=== PATIENT | female | born 1950 | race Caucasian/White ===

== ENCOUNTER → 2023-08-30 | Outpatient (CLI) | payer MEDICARE, OTHER, SELFPAY ==
--- NOTE | 2023-08-30 | DI.RAD.S_ITS ---
Bone Density Report Name: HELEN JAMES Age: 72 Sex: Female Ethnicity: White Date of : 1950 Indication: postmenopausal; screening for osteoporosis; Referring Provider: MEHREEN PEARSON Study: Bone densitometry was performed. Exam Date: August 30, 2023 Accession number: [id number] Bone Density: Region BMD T-score Z-score Classification AP Spine(L1-L4) 0.914 -1.2 1.2 Osteopenia Femoral Neck (Left) 0.599 -2.3 -0.2 Osteopenia Total Hip (Left) 0.781 -1.3 0.5 Osteopenia Femoral Neck (Right) 0.626 -2.0 0.1 Osteopenia Total Hip (Right) 0.845 -0.8 1.0 Normal Total Hip Mean 0.813 -1.1 0.8 Osteopenia World Health Organization criteria for BMD impression classify patients as: Normal (T-score at or above -1.0), Osteopenia (T-score between -1.0 and -2.5), or Osteoporosis (T-score at or below -2.5). 10-year Fracture Risk(1): Major Osteoporotic Fracture 15% Hip Fracture 4.2% Reported Risk Factors: [place] (), Neck BMD=0.599, BMI=24.9 (1) FRAX(R) Version 3.08. Fracture probability calculated for an untreated patient. Fracture probability may be lower if the patient has received treatment. Impression: The patient has low bone mass, based on the Left Femoral Neck T-score. The patient has an estimated ten-year risk of hip fracture of 4.2% and an estimated ten-year risk of major fracture of 15%, based on the WHO FRAX algorithm. Discussion: BONE DENSITY IS LOW AT ONE OR MORE SKELETAL SITES. THE PATIENT'S BMD AND CLINICAL RISK FACTORS CONTRIBUTE TO THIS PATIENT'S INCREASED RISK OF FRACTURE. This patient's lowest T-score is low at one or more skeletal sites. It meets the World Health Organization's (WHO) criteria for low bone mass (T-score between -1.0 and -2.5). The patient's 10-year risk of hip fracture as calculated by FRAX exceeds the threshold where pharmacological therapy is recommended by the National Osteoporosis Foundation (NOF). However, all treatment decisions require clinical judgment and consideration of individual patient factors, including patient preferences, comorbidities, previous drug use, risk factors not captured in the FRAX model (e.g., frailty, falls, vitamin D deficiency, increased bone turnover, interval significant decline in bone density) and possible under or overestimation of fracture risk by FRAX. The patient should follow a healthful lifestyle (good nutrition with adequate calcium and vitamin D, and appropriate weight-bearing exercise). Follow-Up: Consider a repeat BMD and Vertebral Fracture Assessment (VFA) exam in 2 years or sooner if medically necessary, to reassess this patient's status. Reported by: SIMEON RECINOS MD on 08/30/2023 10:46:00 AM.
== END ==
LOC: RAD 14:06
PROVIDERS: PCP Nurse Practitioner Family; Referring Provider Nurse Practitioner Family; Visit Provider Nurse Practitioner Family
DX: Z13.820 Encounter for screening for osteoporosis (principal); M85.852 Other specified disorders of bone density and structure, left thigh; Z78.0 Asymptomatic menopausal state
CPT/HCPCS: 77080

== ENCOUNTER 2024-08-10 11:52 | Day surgery (SDC) | payer MEDICARE, SELFPAY ==
[2024-08-10 12:30] VITALS: BP 122/76; PULSE 71; RESP 6; TEMP 36.6; O2SAT 98
--- NOTE | 2024-08-10 12:47 | P.HP_ITS ---
History of Present Illness History of Present Illness Date Patient Seen: 08/10/24 Time Patient Seen: 12:48 Chief complaint: Dx Colonoscopy w/poss bx Narrative: Jackie is a 73-year-old woman with rectal bleeding and intermittent prolapsing hemorrhoids. See the office note from March for details. [facility] Medical History Chronic knee pain Surgical History Hx of breast augmentation Hx of tonsillectomy Hx of tubal ligation Social History Smoking Status: Never smoker alcohol intake: current Meds Home Medications and Allergies Home Medications Medication Instructions Recorded Confirmed Type sodium,potassium,mag sulfates 17.5 See Rx Instructions PO .COMPLEX 05/22/24 Rx gram-3.13 gram-1.6 gram oral soln #354 mL (Suprep Bowel Prep Kit) Allergies Allergy/AdvReac Type Severity Reaction Status Date / Time No Known Drug Allergies Allergy Verified 08/10/24 12:21 Exam Vital Signs (past 8 hours): - 08/10/24 12:30 Temperature 98 F Pulse Rate 71 Respiratory Rate 6 L Blood Pressure 122/76 Pulse Oximetry 98 Oxygen Delivery Method Room Air Oxygen Delivery Method Room Air Const General: No acute distress Resp Effort & Inspection: normal respiratory effort Assessment & Plan Assessment and plan (1) History of colon polyps: Status: Acute (2) Hemorrhoid: Qualifiers: Hemorrhoid type: third degree Qualified Code(s): K64.2 - Third degree hemorrhoids Status: Acute Plan Colonoscopy with possible rubber-band ligation of internal hemorrhoids Time-Based Coding :: [TOTAL MINUTES] spent with patient and on the chart (including review of chart, obtaining history, exam, reviewing outside data, placing orders, documenting e xam and treatment plan, and counseling patient) on [DATE].
--- NOTE | 2024-08-10 13:17 | P.OP.COLON_ITS ---
Operative Date/Time/Diagnoses Date of procedure: 08/10/24 Time of procedure: 13:17 Pre-op diagnosis: Rectal bleeding Post-op diagnosis: same Procedure & Clinicians Study performed: Colonoscopy Rubber-band ligation of internal hemorrhoids Same procedure as scheduled: Yes Surgeon: José Antonio Alvarez Procedure Notes Procedure in detail: Surgeon: José Antonio Alvarez MD Anesthesia: Tiffany Alvarado CONTROL ROOM SUPERVISOR Procedure: The patient was brought to the endoscopy suite, placed in left lateral decubitus position. The patient was connected to monitoring devices. A time-out was performed. Sedation was administered. Once the patient was adequately sedated, a digital rectal exam was performed and was normal. The scope was then inserted and advanced to the cecum where the appendiceal orifice was identified and photographed. The scope was then slowly withdrawn over greater than 6 minutes. The mucosa was thoroughly inspected. The scope was retroflexed in the rectum. Internal hemorrhoids were noted. No bother abnormalities were seen. The scope was straightened and removed. We then proceeded to perform rubber-band ligation of internal hemorrhoids in the right lateral and left lateral locations. The patient was awakened and brought to recovery. Scope withdrawal time: 7 minutes Sedation time: 17 minutes EBL: 0 Findings: Internal hemorrhoids Post-procedure Disposition: PACU
[2024-08-10 13:19] VITALS: BP 81/50; PULSE 78; RESP 11; TEMP 36.2; O2SAT 92
[2024-08-10 13:25] VITALS: BP 93/60; PULSE 79; RESP 10; O2SAT 94
[2024-08-10 13:28] VITALS: BP 115/67; PULSE 82; RESP 16; TEMP 36.2; O2SAT 97
[2024-08-10 13:34] VITALS: BP 112/65; PULSE 63; RESP 12; TEMP 36.2; O2SAT 97
== END 2024-08-10 13:45 | disposition home or self-care (01) ==
PROVIDERS: Referring Provider Surgery; Visit Provider Surgery
PROC: 0DJD8ZZ Inspection of Lower Intestinal Tract, Via Natural or Artificial Opening Endoscopic (ICD-10-PCS; CPT 45378; principal; 2024-08-10 13:30)
DX: K62.5 Hemorrhage of anus and rectum (principal); Z86.0100 Personal history of colon polyps, unspecified; K64.8 Other hemorrhoids
CPT/HCPCS: 46221; J2704

== ENCOUNTER → 2024-11-03 09:00 | Outpatient (CLI) | payer MEDICARE, SELFPAY ==
--- NOTE | 2024-11-03 09:02 | DI.RAD.S_ITS ---
PROCEDURE: XR HIP W PEL IF DONE ANTONI MIN 4V INDICATIONS: R hip pain TECHNIQUE: AP pelvis with lateral view(s) of the bilateral hip(s). COMPARISON: None. FINDINGS: Bones: No fractures or dislocations. Pelvic ring appears intact. No suspicious bony lesions. Nonuniform joint space narrowing and osteophytic lipping of the acetabuli. Subchondral sclerosis of the right acetabulum. Soft tissues: The visualized bowel gas pattern is normal. No suspicious soft tissue calcifications. IMPRESSION: Moderate bilateral hip osteoarthritis. Dictated by: Gordo Puente M.D. on 11/03/2024 at 14:24 Approved by: Gordo Puente M.D. on 11/03/2024 at 14:24
== END ==
PROVIDERS: PCP Student in an Organized Health Care Education/Training Program; Referring Provider Student in an Organized Health Care Education/Training Program; Visit Provider Student in an Organized Health Care Education/Training Program
DX: M25.551 Pain in right hip (principal); M16.0 Bilateral primary osteoarthritis of hip
CPT/HCPCS: 73522

== ENCOUNTER → 2025-03-15 12:04 | Outpatient (CLI) | payer MEDICARE, SELFPAY ==
--- NOTE | 2025-03-15 12:06 | DI.RAD.S_ITS ---
PROCEDURE: XR KNEE LT 3V INDICATIONS: bilaterla knee pain TECHNIQUE: 3 views of the knee were acquired. COMPARISON: None. FINDINGS: Bones: No fractures or dislocations. No suspicious bony lesions. Patellofemoral irregularity of the articular surface. Mild medial compartment joint space narrowing Soft tissues: No joint effusion. No suspicious soft tissue calcifications. IMPRESSION: Degenerative arthritic changes Approved by: Tate Rolon M.D. on 03/15/2025 at 16:35
--- NOTE | 2025-03-15 12:06 | DI.RAD.S_ITS ---
PROCEDURE: XR KNEE RT 3V INDICATIONS: bilateral knee pain TECHNIQUE: 3 views of the knee were acquired. COMPARISON: None. FINDINGS: Bones: No fractures or dislocations. No suspicious bony lesions. Mild medial compartment joint space narrowing with marginal osteophyte Soft tissues: No joint effusion. No suspicious soft tissue calcifications. IMPRESSION: Mild arthritic changes Approved by: Tate Rolon M.D. on 03/15/2025 at 16:41
== END ==
PROVIDERS: PCP Student in an Organized Health Care Education/Training Program; Referring Provider Student in an Organized Health Care Education/Training Program; Visit Provider Student in an Organized Health Care Education/Training Program
DX: M25.561 Pain in right knee (principal); M25.562 Pain in left knee
CPT/HCPCS: 73562